=== PATIENT | female | born 1960 | race Caucasian/White ===

== ENCOUNTER 2019-02-07 19:17 | Emergency (ER) | payer BC ==
[2019-02-07 19:39] VITALS: BP 135/74
--- NOTE | 2019-02-07 19:51 | UC ---
Throat Pain/Nasal Ru HPI - HPI Summary HPI Summary: Patient has been ill for 3-1/2 weeks with symptoms that started with an upper respiratory illness and have gradually progressed to more of a sinus infection. - History of Current Complaint Chief Complaint: UCRespiratory Stated Complaint: COUGH/CONGESTION/EAR Time Seen by Provider: 02/07/19 19:26 Hx Obtained From: Patient ?: No Onset/Duration: Gradual Onset, Lasting Weeks Severity: Moderate Pain Intensity: 0 Cough: Nonproductive Associated Signs & Symptoms: Positive: Sinus Discomfort, Nasal Discharge - Allergies/Home Medications Allergies/Adverse Reactions: Allergies Allergy/AdvReac Type Severity Reaction Status Date / Time No Known Allergies Allergy Verified 02/07/19 19:34 Home Medications: Home Medications Levothyroxine TAB* [Synthroid TAB*] 100 mcg PO DAILY 02/07/19 [History Confirmed 02/07/19] Venlafaxine ER (NF) [Effexor ER (NF)] 200 mg PO DAILY 02/07/19 [History Confirmed 02/07/19] PMH/Surg Hx/FS Hx/Imm Hx Previously Healthy: Yes - Surgical History Surgical History: Yes Surgery Procedure, Year, and Place: Right Rotator Cuff, 2013, [place]; Hysterctomy, 2006, [place]; Knee (Meniscus) Arthroscopies - Family History Known Family History: Positive: Non-Contributory - Social History Lives: With Family Alcohol Use: Occasionally Substance Use Type: None Smoking Status (MU): Current Some Day Smoker Review of Systems All Other Systems Reviewed And Are Negative: Yes ENT: Positive: Ear Ache - Patient does not have any ear pain however she states her right ear is plugged., Nasal Discharge - Nasal coryza., Sinus Congestion, Sinus Pain/Tenderness Is Patient Immunocompromised?: No Physical Exam Triage Information Reviewed: Yes Appearance: No Pain Distress, Well-Nourished, Ill-Appearing - Mildly ill- appearing. Vital Signs: Initial Vital Signs Temp 98 F 02/07/19 19:31 Pulse 86 02/07/19 19:31 Resp 18 02/07/19 19:31 BP 135/74 02/07/19 19:31 Pulse Ox 100 02/07/19 19:31 Vital Signs Reviewed: Yes Eye Exam: Normal ENT: Positive: Nasal congestion, Nasal drainage, TMs normal, Sinus tenderness - Bilateral maxillary sinus tenderness on palpation, yellow postnasal drainage, Turbinates inflamed and swollen, Uvula midline. Negative: Tonsillar swelling, Tonsillar exudate, Trismus, Muffled voice, Hoarse voice Neck exam: Normal Neck: Positive: Supple, Nontender, No Lymphadenopathy Respiratory: Positive: Lungs clear, Normal breath sounds, No respiratory distress, No accessory muscle use Cardiovascular: Positive: RRR, No Murmur, Pulses Normal, Brisk Capillary Refill Abdomen Description: Positive: Nontender, No Organomegaly, Soft Bowel Sounds: Positive: Present Musculoskeletal Exam: Normal Neurological Exam: Normal Psychological Exam: Normal Skin Exam: Normal Throat Pain/Nasal Course/Dx - Course Course Of Treatment: Advised to take the antibiotic with food. Follow-up with her primary care provider next week if no improvement. - Differential Dx/Diagnosis Provider Diagnosis: Sinusitis Discharge - Sign-Out/Discharge Documenting (check all that apply): Patient Departure All imaging exams completed and their final reports reviewed: No Studies - Discharge Plan Condition: Fair Disposition: HOME Prescriptions: Amoxicillin/Clavulanate TAB* [Augmentin TAB 875*] 875 mg PO BID 10 Days #20 tab Patient Education Materials: Sinusitis (ED) Referrals: [facility] [Outside] No Primary Care Phys,NOPCP [Primary Care Provider] - Additional Instructions: Increase fluids, take the Augmentin with food, follow-up with your primary care provider if no improvement by early next week. - Billing Disposition and Condition Condition: FAIR Disposition: Home - Attestation Statements Provider Attestation: Per institutional requirements, I have reviewed the chart, however, I was not consulted specifically or made aware of this patient by the midlevel provider. I did not personally evaluate, interact with , or disposition this patient.
== END 2019-02-07 20:00 | disposition home or self-care (01) ==
LOC: UCCORT 19:17
DX: J32.9 Chronic sinusitis, unspecified (principal); Z72.0 Tobacco use; H93.8X1 Other specified disorders of right ear
CPT/HCPCS: 99202; G0463

== ENCOUNTER 2019-02-21 15:52 | Emergency (ER) | payer BC ==
[2019-02-21 16:34] VITALS: BP 136/92
--- NOTE | 2019-02-21 17:31 | ED ---
Throat Pain/Nasal Congestion - HPI Summary HPI Summary: 59 yr old female with right ear pain and persistent sinus pressure and green nasal drainage. The patient states she was treated for a sinus infection with Biaxin a couple weeks ago. She got slightly better but now sinuses full again, and right ear also hurting now. No fever or chills. Symptoms are moderate. - History of Current Complaint Chief Complaint: UCGeneralIllness Time Seen by Provider: 02/21/19 17:21 - Allergies/Home Medications Allergies/Adverse Reactions: Allergies Allergy/AdvReac Type Severity Reaction Status Date / Time No Known Allergies Allergy Verified 02/21/19 16:29 Home Medications: Home Medications Fluticasone NASAL SPRAY 50MCG* [Flonase NASAL SPRAY 50MCG*] 2 spray BOTH NARES DAILY 02/21/19 [History Confirmed 02/21/19] Loratadine/Pseudoephedrine [Claritin-D 24 Hour Tablet] 1 each PO DAILY 02/21/19 [History Confirmed 02/21/19] guaiFENesin [Mucinex] 600 mg PO BID 02/21/19 [History Confirmed 02/21/19] PMH/Surg Hx/FS Hx/Imm Hx Endocrine/Hematology History: Reports: Hx Thyroid Disease - Hypothyroidism - Surgical History Surgery Procedure, Year, and Place: Right Rotator Cuff, 2013, [place]; Hysterctomy, 2006, [place]; Knee (Meniscus) Arthroscopies Infectious Disease History: No Infectious Disease History: Denies: Traveled Outside the [place] in Last 30 Days - Family History Known Family History: Positive: Non-Contributory - Social History Alcohol Use: Occasionally Substance Use Type: Reports: None Smoking Status (MU): Former Smoker Review of Systems Constitutional: Negative Positive: Nasal Discharge, Other - sinus discharge All Other Systems Reviewed And Are Negative: Yes Physical Exam Triage Information Reviewed: Yes Vital Signs On Initial Exam: Initial Vitals Temp Pulse Resp BP Pulse Ox 97.2 F 75 18 136/92 100 02/21/19 16:30 02/21/19 16:30 02/21/19 16:30 02/21/19 16:30 02/21/19 16:30 Vital Signs Reviewed: Yes Appearance: Positive: Well-Appearing, No Pain Distress Skin: Positive: Warm, Skin Color Reflects Adequate Perfusion Head/Face: Positive: Normal Head/Face Inspection Eyes: Positive: EOMI ENT: Positive: Pharyngeal erythema, Nasal congestion, Nasal drainage, TM red - right, Sinus tenderness Neck: Positive: Nontender Respiratory/Lung Sounds: Positive: Clear to Auscultation, Breath Sounds Present Cardiovascular: Positive: RRR. Negative: Murmur Abdomen Description: Negative: Distended Musculoskeletal: Positive: Strength/ROM Intact Neurological: Positive: Sensory/Motor Intact, Alert, Oriented to Person Place, Time, CN Intact II-III, Normal Gait, Speech Normal Psychiatric: Positive: Normal - Amarilis Coma Scale Best Eye Response: 4 - Spontaneous Best Motor Response: 6 - Obeys Commands Best Verbal Response: 5 - Oriented Coma Scale Total: 15 Diagnostics - Vital Signs Vital Signs Temp Pulse Resp BP Pulse Ox 02/21/19 16:30 97.2 F 75 18 136/92 100 - Laboratory Lab Statement: Any lab studies that have been ordered have been reviewed, and results considered in the medical decision making process. EENT Course/Dx - Course Course Of Treatment: 59 yr old with sinusitis and right ear infection. - Diagnoses Provider Diagnoses: Sinusitis, Right otitis media, Hypertension Discharge - Sign-Out/Discharge Documenting (check all that apply): Patient Departure All imaging exams completed and their final reports reviewed: No Studies - Discharge Plan Condition: Good Disposition: HOME Prescriptions: Clarithromycin TAB* [Biaxin 500 MG TAB*] 500 mg PO BID #20 tab Patient Education Materials: Sinusitis (ED), Ear Infection (ED), Hypertension ( ED) Referrals: No Primary Care Phys,NOPCP [Primary Care Provider] - [facility] [place] [facility] [Outside] - 2 Days - Billing Disposition and Condition Condition: GOOD Disposition: Home
== END 2019-02-21 17:36 | disposition home or self-care (01) ==
LOC: UCCORT 15:52
DX: H66.91 Otitis media, unspecified, right ear (principal); J32.9 Chronic sinusitis, unspecified; I10 Essential (primary) hypertension; E03.9 Hypothyroidism, unspecified; Z87.891 Personal history of nicotine dependence
CPT/HCPCS: 99212; G0463